=== PATIENT | female | born 1930 | race Caucasian/White ===

== ENCOUNTER 2016-07-29 22:10 | Inpatient (IN) | payer MEDICARE ==
[~2016-07-29] VITALS: Ht 149.9 cm; Wt 56.2 kg
[2016-07-30 00:14] LABS: HEMOGLOBIN 9.8 gm/dl (12.3-15.3); RED BLOOD COUNT 4.13 M/UL (4.00-5.10); WHITE BLOOD COUNT 7.9 K/UL (4.5-11.0)
[2016-07-30] MEDS ORDERED: NORVASC 5 MG TAB5 MG PO (11:23)
[2016-07-30] MEDS ORDERED: SEROQUEL TAB 2525 MG PO ×2 (11:24→11:25)
[2016-07-30] MEDS ORDERED: FAMOTIDINE40 MG PO (11:24)
[2016-07-30] MEDS ORDERED: RALOXIFENE HCL60 MG PO (11:25)
[2016-07-30] MEDS ORDERED: PLAVIX 75 MG TA75 MG PO (11:26)
[2016-07-30] MEDS ORDERED: VITAMIN B-1000 MCG/M IM (11:27)
[2016-07-30] MEDS ORDERED: VALSARTAN-HCTZ1 EAC2 PO (11:27)
[2016-07-30] MEDS ORDERED: GLUCOPHAGE500 MG PO (11:27)
[2016-07-30] MEDS ORDERED: VITAMIN D250000 UNIT PO (11:28)
[2016-07-30] MEDS ORDERED: KLOR-CON M1010 MEQ PO (11:29)
[2016-07-30] MEDS ORDERED: CLONIDINE HCL0.1 MG PO (11:29)
[2016-07-30] MEDS ORDERED: PRAVASTATIN SOD80 MG PO (11:30)
[2016-07-31 08:24] LABS: HEMOGLOBIN 11.5 gm/dl (12.3-15.3); WHITE BLOOD COUNT 8.2 K/UL (4.5-11.0)
[2016-07-31 08:25] LABS: RED BLOOD COUNT 4.8 M/UL (4.00-5.10)
[2016-08-01 06:32] LABS: WHITE BLOOD COUNT 6.7 K/UL (4.5-11.0)
[2016-08-01 06:43] LABS: HEMOGLOBIN 9.4 gm/dl (12.3-15.3); RED BLOOD COUNT 3.99 M/UL (4.00-5.10)
[2016-08-02 06:58] LABS: HEMOGLOBIN 9.6 gm/dl (12.3-15.3); RED BLOOD COUNT 4.1 M/UL (4.00-5.10); WHITE BLOOD COUNT 7.9 K/UL (4.5-11.0)
== END 2016-08-03 20:30 | disposition home or self-care (01) | DRG 884 ==
LOC: ER1 22:10 → ZEROF 07-30 02:25 → M/S 07-30 11:34
PROVIDERS: Family Medicine; ADMIT Internal Medicine
DX: F01.51 Vascular dementia, unspecified severity, with behavioral disturbance (principal); N39.0 Urinary tract infection, site not specified; E87.1 Hypo-osmolality and hyponatremia; Z91.09 Other allergy status, other than to drugs and biological substances; Z66 Do not resuscitate; I67.9 Cerebrovascular disease, unspecified; D51.0 Vitamin B12 deficiency anemia due to intrinsic factor deficiency; Z88.2 Allergy status to sulfonamides
CPT/HCPCS: 36415; 70450; 80048; 80053; 81001; 82962; 85025; 85027; 87086; 93880; 96360; 97110; 97116; 97535; 99285; J1956